=== PATIENT | male | born 1985 | race Caucasian/White ===

== ENCOUNTER 2018-12-08 16:53 | Emergency (ER) | payer MEDICAID, OTHER ==
[~2018-12-08] VITALS: Ht 193 cm; Wt 81.8 kg
[~2018-12-08 16:53] MED LIST: ONDA4 PO
[2018-12-08 18:22] VITALS: BP 128/78
== END 2018-12-08 18:58 | disposition home or self-care (01) ==
LOC: EMS 16:54
DX: G89.29 Other chronic pain (principal); M54.5 Low back pain; F11.23 Opioid dependence with withdrawal; F17.210 Nicotine dependence, cigarettes, uncomplicated; Z88.2 Allergy status to sulfonamides
CPT/HCPCS: 99406